=== PATIENT | male | born 1995 | race Hispanic/Latino ===

== ENCOUNTER 2017-11-15 20:00 | Emergency (ER) | payer SELFPAY | END 2017-11-15 22:13 | disposition home or self-care (01) | LOC: M ED 20:00 | DX: J06.9 Acute upper respiratory infection, unspecified (principal); F17.200 Nicotine dependence, unspecified, uncomplicated; Z88.8 Allergy status to other drugs, medicaments and biological substances | CPT/HCPCS: 71046 ==